=== PATIENT | female | born 1990 | race Asian ===

== ENCOUNTER 2022-05-18 20:49 | Emergency (ER) | payer OTHER, BC ==
[2022-05-18] MEDS ORDERED: Ketorolac Tromethamine 30 MG/ML VIAL ONE (22:36)
== END 2022-05-18 22:56 | disposition home or self-care (01) ==
LOC: ERS 20:49
DX: S80.12XA Contusion of left lower leg, initial encounter (principal); S80.11XA Contusion of right lower leg, initial encounter; V89.2XXA Person injured in unspecified motor-vehicle accident, traffic, initial encounter; Y92.410 Unspecified street and highway as the place of occurrence of the external cause
CPT/HCPCS: 71045; 96372; J1885